=== PATIENT | female | born 1955 | race Caucasian/White ===

== ENCOUNTER 2022-01-17 06:08 | Day surgery (SDC) | payer OTHER ==
[2022-01-11 08:35] VITALS: BMI 35.5
[2022-01-17 06:53] VITALS: RESP 18
[2022-01-17] MEDS ORDERED: BUPIVACAINE HCL 50 ML ONE (07:08)
[2022-01-17] MEDS ORDERED: LIDOCAINE HCL 2% (20ML MULTI-DOSE VIAL) ONE (07:08)
[2022-01-17] MEDS ORDERED: ONDANSETRON 4 MG/2 ML VIAL ONE (07:11)
[2022-01-17] MEDS ORDERED: LIDOCAINE HCL/PF 2% SDV 5ML VIAL ONE (07:11)
[2022-01-17] MEDS ORDERED: DEXAMETHASONE SOD PHOSPHATE 4 MG/1 ML VIAL ONE (07:11)
[2022-01-17] MEDS ORDERED: KETOROLAC TROMETHAMINE 30 MG/1 ML VIAL ONE (07:11)
[2022-01-17] MEDS ORDERED: MIDAZOLAM HCL 2 MG/2 ML SINGLE DOSE VIAL ONE (07:12)
[2022-01-17] MEDS ORDERED: PROPOFOL 20 ML ONE ×2 (07:12→07:48)
[2022-01-17] MEDS ORDERED: ceFAZolin SODIUM 1 GM VIAL ONE ×2 (07:48)
[2022-01-17] MEDS ORDERED: oxyCODONE HCL 5 MG TABLET PO PRN ×2 (08:39)
[2022-01-17] MEDS ORDERED: ONDANSETRON 4 MG/2 ML VIAL IVPUSH PRN (08:39)
[2022-01-17] MEDS ORDERED: LACTATED RINGERS SOLUTION 1,000 ML IV SCH (08:45)
[2022-01-17 08:50] VITALS: TEMP 97.8
[2022-01-17 09:37] VITALS: BP 121/64; PULSE 75
== END 2022-01-17 09:30 | disposition home or self-care (01) ==
LOC: FASU 06:08
PROVIDERS: ATTEND Podiatrist
PROC: 0QBN0ZZ Excision of Right Metatarsal, Open Approach (ICD-10-PCS; principal; 2022-01-17 07:53)
DX: M20.21 Hallux rigidus, right foot (principal)
CPT/HCPCS: 73630-TC-RT-FY; 88305-TC; 88311-TC